=== PATIENT | male | born 1975 | race Caucasian/White ===

== ENCOUNTER 2019-12-19 12:53 | Emergency (ER) | payer BC ==
--- NOTE | 2019-12-19 13:08 | EDM.PDOC ---
ED HPI GENERAL MEDICAL PROBLEM - General Chief Complaint: Diabetic Complaint Stated Complaint: DIABETIC Time Seen by Provider: 12/19/19 12:54 Source of Information: Reports: Patient History Limitations: Reports: No Limitations - History of Present Illness INITIAL COMMENTS - FREE TEXT/NARRATIVE: 44-year-old male past medical history [id number] diabetes presents for multiple complaints. Patient notes that he was on quarantine for the last 2 weeks because his was diagnosed with COVID-19. He has noted over the last several days generalized fatigue, weight gain of 8 to 10 pounds, fluctuating blood sugars from mid 100s to mid 300s. He has noted a headache and body aches. He denies shortness of breath, but he has developed a cough today. He notes that he had stopped taking his insulin for several months and that his blood sugars have been well controlled with diet alone. He does not currently have a primary care physician but is interested in establishing care with someone. He denies fevers. headache Pain Score (Numeric/FACES): 6 - Related Data Allergies Allergy/AdvReac Type Severity Reaction Status Date / Time prednisone Allergy vascular Verified 12/19/19 13:06 necrosis steroids Allergy Other Uncoded 12/19/19 13:06 Home Meds: Home Meds . 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 ED EXAM GENERAL NO PERIP PULSE - Physical Exam Exam: See Below General Appearance: Alert, WD/WN, No Apparent Distress Throat/Mouth: Normal Voice, No Airway Compromise Head: Atraumatic, Normocephalic Neck: Normal Inspection Respiratory/Chest: No Respiratory Distress, No Accessory Muscle Use, Wheezing Cardiovascular: Normal Peripheral Pulses, Regular Rate, Rhythm GI/Abdominal: Soft, Non-Tender Extremities: Normal Inspection Neurological: Alert Psychiatric: Normal Affect, Normal Mood Skin Exam: Warm, Dry, Intact, Normal Color Course - Vital Signs Last Recorded V/S: Last Vital Signs Temp 96.8 F L 12/19/19 13:01 Pulse 110 H 12/19/19 13:01 Resp 18 12/19/19 13:01 BP 154/100 H 12/19/19 13:01 Pulse Ox 95 12/19/19 13:01 - Orders/Labs/Meds Orders: Active Orders 24 hr Category Date Time Status EKG Documentation Completion [RC] STAT Care 12/19/19 13:20 Active CORONAVIRUS COVID-19 PCR PHL Stat Lab 12/19/19 14:00 Received Sodium Chloride 0.9% [Saline Flush] Med 12/19/19 13:20 Active 10 ml FLUSH ASDIRECTED PRN Sodium Chloride 0.9% [Saline Flush] Med 12/19/19 13:20 Active 2.5 ml FLUSH ASDIRECTED PRN Saline Lock Insert [OM.PC] Stat Oth 12/19/19 13:20 Ordered Medication Orders Sodium Chloride (Saline Flush) 10 ml FLUSH ASDIRECTED PRN PRN Reason: Keep Vein Open Last Admin: 12/19/19 13:59 Dose: 10 ml Documented by: JULIANN Sodium Chloride (Saline Flush) 2.5 ml FLUSH ASDIRECTED PRN PRN Reason: Keep Vein Open Last Admin: 12/19/19 13:59 Dose: 2.5 ml Documented by: JULIANN Labs: Laboratory Tests 12/19/19 12/19/19 12/19/19 Range/Units 13:36 13:46 13:46 WBC 11.83 H (4.0-11.0) K/uL RBC 5.02 (4.50-5.90) M/uL Hgb 15.1 (13.0-17.0) g/dL Hct 45.8 (38.0-50.0) % MCV 91.2 (80.0-98.0) fL MCH 30.1 (27.0-32.0) pg MCHC 33.0 (31.0-37.0) g/dL RDW Std Deviation 49.1 (28.0-62.0) fl RDW Coeff of Bryson 15 (11.0-15.0) % Plt Count 317 (150-400) K/uL MPV 10.30 (7.40-12.00) fL Neut % (Auto) 54.9 (48.0-80.0) % Lymph % (Auto) 35.8 (16.0-40.0) % Wilkes % (Auto) 7.6 (0.0-15.0) % Eos % (Auto) 1.4 (0.0-7.0) % Baso % (Auto) 0.3 (0.0-1.5) % Neut # (Auto) 6.5 H (1.4-5.7) K/uL Lymph # (Auto) 4.2 H (0.6-2.4) K/uL Wilkes # (Auto) 0.9 H (0.0-0.8) K/uL Eos # (Auto) 0.2 (0.0-0.7) K/uL Baso # (Auto) 0.0 (0.0-0.1) K/uL Nucleated RBC % 0.0 /100WBC Nucleated RBCs # 0 K/uL Lactate 1.9 (0.20-2.00) mmol/L Sodium (136-148) mmol/L Potassium (3.5-5.1) mmol/L Chloride (98-107) mmol/L Carbon Dioxide (21.0-32.0) mmol/L BUN (7.0-18.0) mg/dL Creatinine (0.8-1.3) mg/dL Est Cr Clr Drug Dosing mL/min Estimated GFR (MDRD) ml/min Glucose (74-106) mg/dL POC Glucose (60-110) mg/dL Hemoglobin A1c (4.5-6.2) % Calcium (8.5-10.1) mg/dL Magnesium (1.8-2.4) mg/dL Total Bilirubin (0.2-1.0) mg/dL AST (15-37) IU/L ALT (14-63) IU/L Alkaline Phosphatase (46-116) U/L Troponin I (0.000-0.056) ng/mL C-Reactive Protein (0.00-0.90) mg/dL Total Protein (6.4-8.2) g/dL Albumin (3.4-5.0) g/dL Globulin (2.6-4.0) g/dL Albumin/Globulin Ratio (0.9-1.6) Urine Color YELLOW Urine Appearance CLEAR Urine pH 5.5 (5.0-8.0) Ur Specific [place] 1.025 (1.001-1.035) Urine Protein NEGATIVE (NEGATIVE) mg/dL Urine Glucose (UA) NEGATIVE (NEGATIVE) mg/dL Urine Ketones NEGATIVE (NEGATIVE) mg/dL Urine Occult Blood NEGATIVE (NEGATIVE) Urine Nitrite NEGATIVE (NEGATIVE) Urine Bilirubin NEGATIVE (NEGATIVE) Urine Urobilinogen 0.2 (<2.0) EU/dL Ur Leukocyte Esterase NEGATIVE (NEGATIVE) SARS CoV-2 RNA Rapid DANICA (NEGATIVE) 12/19/19 12/19/19 12/19/19 Range/Units 13:46 13:46 14:00 WBC (4.0-11.0) K/uL RBC (4.50-5.90) M/uL Hgb (13.0-17.0) g/dL Hct (38.0-50.0) % MCV (80.0-98.0) fL MCH (27.0-32.0) pg MCHC (31.0-37.0) g/dL RDW Std Deviation (28.0-62.0) fl RDW Coeff of Bryson (11.0-15.0) % Plt Count (150-400) K/uL MPV (7.40-12.00) fL Neut % (Auto) (48.0-80.0) % Lymph % (Auto) (16.0-40.0) % Wilkes % (Auto) (0.0-15.0) % Eos % (Auto) (0.0-7.0) % Baso % (Auto) (0.0-1.5) % Neut # (Auto) (1.4-5.7) K/uL Lymph # (Auto) (0.6-2.4) K/uL Wilkes # (Auto) (0.0-0.8) K/uL Eos # (Auto) (0.0-0.7) K/uL Baso # (Auto) (0.0-0.1) K/uL Nucleated RBC % /100WBC Nucleated RBCs # K/uL Lactate (0.20-2.00) mmol/L Sodium 140 (136-148) mmol/L Potassium 3.4 L (3.5-5.1) mmol/L Chloride 104 (98-107) mmol/L Carbon Dioxide 24.6 (21.0-32.0) mmol/L BUN 11 (7.0-18.0) mg/dL Creatinine 1.3 (0.8-1.3) mg/dL Est Cr Clr Drug Dosing 77.93 mL/min Estimated GFR (MDRD) 59.4 ml/min Glucose 145 H (74-106) mg/dL POC Glucose (60-110) mg/dL Hemoglobin A1c 6.5 H (4.5-6.2) % Calcium 8.5 (8.5-10.1) mg/dL Magnesium 2.0 (1.8-2.4) mg/dL Total Bilirubin 0.3 (0.2-1.0) mg/dL AST 17 (15-37) IU/L ALT 35 (14-63) IU/L Alkaline Phosphatase 126 H (46-116) U/L Troponin I < 0.050 (0.000-0.056) ng/mL C-Reactive Protein 0.70 (0.00-0.90) mg/dL Total Protein 6.6 (6.4-8.2) g/dL Albumin 3.4 (3.4-5.0) g/dL Globulin 3.2 (2.6-4.0) g/dL Albumin/Globulin Ratio 1.1 (0.9-1.6) Urine Color Urine Appearance Urine pH (5.0-8.0) Ur Specific [place] (1.001-1.035) Urine Protein (NEGATIVE) mg/dL Urine Glucose (UA) (NEGATIVE) mg/dL Urine Ketones (NEGATIVE) mg/dL Urine Occult Blood (NEGATIVE) Urine Nitrite (NEGATIVE) Urine Bilirubin (NEGATIVE) Urine Urobilinogen (<2.0) EU/dL Ur Leukocyte Esterase (NEGATIVE) SARS CoV-2 RNA Rapid DANICA NEGATIVE (NEGATIVE) 12/19/19 Range/Units 14:11 WBC (4.0-11.0) K/uL RBC (4.50-5.90) M/uL Hgb (13.0-17.0) g/dL Hct (38.0-50.0) % MCV (80.0-98.0) fL MCH (27.0-32.0) pg MCHC (31.0-37.0) g/dL RDW Std Deviation (28.0-62.0) fl RDW Coeff of Bryson (11.0-15.0) % Plt Count (150-400) K/uL MPV (7.40-12.00) fL Neut % (Auto) (48.0-80.0) % Lymph % (Auto) (16.0-40.0) % Wilkes % (Auto) (0.0-15.0) % Eos % (Auto) (0.0-7.0) % Baso % (Auto) (0.0-1.5) % Neut # (Auto) (1.4-5.7) K/uL Lymph # (Auto) (0.6-2.4) K/uL Wilkes # (Auto) (0.0-0.8) K/uL Eos # (Auto) (0.0-0.7) K/uL Baso # (Auto) (0.0-0.1) K/uL Nucleated RBC % /100WBC Nucleated RBCs # K/uL Lactate (0.20-2.00) mmol/L Sodium (136-148) mmol/L Potassium (3.5-5.1) mmol/L Chloride (98-107) mmol/L Carbon Dioxide (21.0-32.0) mmol/L BUN (7.0-18.0) mg/dL Creatinine (0.8-1.3) mg/dL Est Cr Clr Drug Dosing mL/min Estimated GFR (MDRD) ml/min Glucose (74-106) mg/dL POC Glucose 140 H (60-110) mg/dL Hemoglobin A1c (4.5-6.2) % Calcium (8.5-10.1) mg/dL Magnesium (1.8-2.4) mg/dL Total Bilirubin (0.2-1.0) mg/dL AST (15-37) IU/L ALT (14-63) IU/L Alkaline Phosphatase (46-116) U/L Troponin I (0.000-0.056) ng/mL C-Reactive Protein (0.00-0.90) mg/dL Total Protein (6.4-8.2) g/dL Albumin (3.4-5.0) g/dL Globulin (2.6-4.0) g/dL Albumin/Globulin Ratio (0.9-1.6) Urine Color Urine Appearance Urine pH (5.0-8.0) Ur Specific [place] (1.001-1.035) Urine Protein (NEGATIVE) mg/dL Urine Glucose (UA) (NEGATIVE) mg/dL Urine Ketones (NEGATIVE) mg/dL Urine Occult Blood (NEGATIVE) Urine Nitrite (NEGATIVE) Urine Bilirubin (NEGATIVE) Urine Urobilinogen (<2.0) EU/dL Ur Leukocyte Esterase (NEGATIVE) SARS CoV-2 RNA Rapid DANICA (NEGATIVE) Meds: Medications Generic Name Dose Route Start Last Admin Trade Name Freq PRN Reason Stop Dose Admin Sodium Chloride 10 ml 12/19/19 13:20 12/19/19 13:59 Saline Flush FLUSH 10 ml ASDIRECTED PRN Administration Keep Vein Open Sodium Chloride 2.5 ml 12/19/19 13:20 12/19/19 13:59 Saline Flush FLUSH 2.5 ml ASDIRECTED PRN Administration Keep Vein Open Discontinued Medications Generic Name Dose Route Start Last Admin Trade Name Freq PRN Reason Stop Dose Admin Sodium Chloride 1,000 mls @ 999 mls/hr 12/19/19 13:20 12/19/19 13:51 Normal Saline IV 12/19/19 14:20 999 mls/hr .Bolus ONE Administration Ketorolac Tromethamine 15 mg 12/19/19 13:21 12/19/19 13:51 Toradol IVPUSH 12/19/19 13:22 15 mg ONETIME ONE Administration - Re-Assessments/Exams Free Text/Narrative Re-Assessment/Exam: 12/19/19 13:24 Patient symptoms very nonspecific. Will get broad lab work-up including EKG, chest x-ray, COVID-19 swab, blood labs, hemoglobin A1c, UA. And accordingly. Patient is with normal vital signs and likely stable to go home and follow-up with her primary care physician. Will give patient follow-up information. 12/19/19 14:52 Labs grossly unremarkable, will discharge patient with referral to primary care clinic. Return precautions were discussed and patient is encouraged to return back to the emergency department for any emergent complications. Departure - Departure Time of Disposition: 14:52 Disposition: Home, Self-Care 01 Condition: Good Clinical Impression: Diabetes Qualifiers: Diabetes mellitus type: type 2 Diabetes mellitus watermelon inspector insulin use: without watermelon inspector use Diabetes mellitus complication status: without complication Qualified Code(s): E11.9 - Type 2 diabetes mellitus without complications - Discharge Information Instructions: Type 2 Diabetes Mellitus, Self Care, Adult, [id number] Referrals: PCP,None [Primary Care Provider] - Forms: ED Department Discharge Additional Instructions: The following information is given to patients seen in the emergency department who are being discharged to home. This information is to outline your options for follow-up care. We provide all patients seen in our emergency department with a follow-up referral. The need for follow-up, as well as the timing and circumstances, are variable depending upon the specifics of your emergency department visit. If you don't have a primary care physician on staff, we will provide you with a referral. We always advise you to contact your personal physician following an emergency department visit to inform them of the circumstance of the visit and for follow-up with them and/or the need for any referrals to a consulting specialist. The emergency department will also refer you to a specialist when appropriate. This referral assures that you have the opportunity for follow-up care with a specialist. All of these measure are taken in an effort to provide you with optimal care, which includes your follow-up. Under all circumstances we always encourage you to contact your private physician who remains a resource for coordinating your care. When calling for follow-up care, please make the office aware that this follow-up is from your recent emergency room visit. If for any reason you are refused follow-up, please contact the [facility] Emergency Department at and asked to speak to the emergency department charge nurse. Please follow up with your primary care physician. If you do not have a primary care physician, see below: [facility] [address] [place] [id number] [address] Sepsis Event Note (ED) - Evaluation Sepsis Screening Result: No Definite Risk - Focused Exam Vital Signs: Vital Signs Temp Pulse Resp BP Pulse Ox 12/19/19 13:01 96.8 F L 110 H 18 154/100 H 95 - My Orders Last 24 Hours: My Active Orders 12/19/19 13:20 EKG Documentation Completion [RC] STAT Sodium Chloride 0.9% [Saline Flush] 10 ml FLUSH ASDIRECTED PRN Sodium Chloride 0.9% [Saline Flush] 2.5 ml FLUSH ASDIRECTED PRN Saline Lock Insert [OM.PC] Stat 12/19/19 14:00 CORONAVIRUS COVID-19 PCR PHL Stat - Assessment/Plan Last 24 Hours: My Active Orders 12/19/19 13:20 EKG Documentation Completion [RC] STAT Sodium Chloride 0.9% [Saline Flush] 10 ml FLUSH ASDIRECTED PRN Sodium Chloride 0.9% [Saline Flush] 2.5 ml FLUSH ASDIRECTED PRN Saline Lock Insert [OM.PC] Stat 12/19/19 14:00 CORONAVIRUS COVID-19 PCR PHL Stat
[2019-12-19] MEDS ORDERED: Sodium Chloride 0.9% 1,000 ML IV ONE (13:20)
[2019-12-19] MEDS ORDERED: Sodium Chloride 0.9% 10 ML Syringe FLUSH PRN (13:20)
[2019-12-19] MEDS ORDERED: Sodium Chloride 0.9% 2.5 ML Syringe FLUSH PRN (13:20)
[2019-12-19] MEDS ORDERED: Ketorolac 15 MG/ML SDV IVPUSH ONE (13:21)
--- NOTE | 2019-12-19 14:01 | CR ---
Indication: Cough. History of diabetes. Technique: AP portable view of the chest. Comparison: None Findings: The heart is normal in size. The lungs are clear. No infiltrate, pleural effusion, or pneumothorax is identified. Impression: No acute cardiopulmonary process. Dictated by Lucero Claudio MD @ Dec 19 2019 2:00PM Signed by Dr. Lucero Claudio @ Dec 19 2019 2:00PM
[2019-12-19 14:06] LABS: HEMOGLOBIN A1C 6.5 % (4.5-6.2)
[2019-12-19 14:17] LABS: BLOOD UREA NITROGEN,BUN 11 mg/dL (7.0-18.0); CARBON DIOXIDE,CO2 24.6 mmol/L (21.0-32.0); CHLORIDE,CL 104 mmol/L (98-107); GLUCOSE RANDOM 145 mg/dL (74-106); POTASSIUM,K 3.4 mmol/L (3.5-5.1); SODIUM,NA 140 mmol/L (136-148)
[2019-12-19 19:46] VITALS: BP 132/68; PULSE 81
== END 2019-12-19 15:07 | disposition home or self-care (01) ==
LOC: MW.ED 12:53
DX: E11.9 Type 2 diabetes mellitus without complications (principal); Z20.828 Contact with and (suspected) exposure to other viral communicable diseases; Z88.8 Allergy status to other drugs, medicaments and biological substances
CPT/HCPCS: 71045; 80053; 81003; 82962; 83036; 83605; 83735; 84484; 85025; 86140; 87635; 93005; 96374; 99285; J1885; J7030; 93010; 99283; U0002

== ENCOUNTER 2020-06-19 07:22 | Emergency (ER) | payer BC ==
[2020-06-19] MEDS ORDERED: Lactated Ringers 1,000 ML IV ONE ×2 (07:47)
[2020-06-19 08:23] LABS: HEMOGLOBIN A1C 8.8 %
[2020-06-19 08:25] LABS: BLOOD UREA NITROGEN,BUN 12 mg/dL (7.0-18.0); CARBON DIOXIDE,CO2 22.3 mmol/L (21.0-32.0); CHLORIDE,CL 100 mmol/L (98-107); POTASSIUM,K 4.1 mmol/L (3.5-5.1); SODIUM,NA 135 mmol/L (136-148)
[2020-06-19 08:29] LABS: GLUCOSE RANDOM 523 mg/dL (74-106)
[2020-06-19 08:42] VITALS: BP 153/89; PULSE 87
[2020-06-19] MEDS ORDERED: Insulin Regular, Human 100 Units/ML 10 ML Vial SUBCUT ONE (09:49)
[2020-06-19] MEDS ORDERED: 50% Dextrose in Water 50 ML Syringe IV PRN (09:49)
[2020-06-19] MEDS ORDERED: Glucagon,Human Recombinant 1 MG Vial IM PRN (09:49)
--- NOTE | 2020-06-19 10:03 | EDM.PDOC ---
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 He states that he cannot seem to control his sugars and they have been high. He states that he was on Metformin and insulin but is not currently taking either. He states that he has been trying to cut out carbs but it seems and possible and he may have to start a keto diet. He states that he is experiencing polyuria and polydipsia. He denies any chest pain, shortness of breath, abdominal pain, nausea or vomiting. He denies any rash and states that he does check his feet frequently. He denies any history of peripheral neuropathy. Denies any history of gastroparesis. He denies any other symptoms. REVIEW OF SYSTEMS: Constitutional: Denies fever, chills. Eyes: Denies eye pain Ears, Nose, Mouth, & Throat: Denies earache Cardiovascular: Denies chest pain Respiratory: Denies shortness of breath Gastrointestinal: Denies Nausea, vomiting, diarrhea, hematochezia. Genitourinary: Positive for polyuria and polydipsia. Denies hematuria Skin:Denies a rash MSK: Denies joint pain Neurological: Denies blurred vision, numbness, tingling, weakness Psychiatric: Denies depression PAST MEDICAL HISTORY: As per history of present illness and as reviewed below otherwise noncontributory. SURGICAL HISTORY: As per history of present illness and as reviewed below otherwise noncontributory. SOCIAL HISTORY: As per history of present illness and as reviewed below otherwise noncontributory. FAMILY HISTORY: As per history of present illness and as reviewed below otherwise noncontributory. EXAMINATION OF ORGAN SYSTEMS/BODY AREAS: Constitutional: Blood pressure is 145/107, heart rate 104, respiratory rate 18 with an oxygen saturation 96% on room air. Temperature 36.0 temporally General: Obese gentleman who does not appear to be in acute distress Psychiatric: Cooperative but appears anxious Eyes: No scleral icterus or conjunctival erythema ENMT: Moist mucous membranes. No pharyngeal erythema Cardiovascular: Tachycardic but regular no gallops, murmurs, or rubs. Bilateral upper extremity pulses symmetric and intact. No peripheral edema. No JVD. Respiratory: Lungs clear to auscultation bilaterally. No wheezes, rales, or rhonchi. Gastrointestinal: Soft, non-tender, non-distended. Normoactive bowel sounds Genitourinary: No suprapubic tenderness Musculoskeletal: Normal range of motion. Skin: No lesions or abrasions. Neurological: Alert, GCS 15 MEDICAL DECISION MAKING AND COURSE IN THE ED WITH INTERPRETATION/REVIEW OF DIAGNOSTIC STUDIES: This is a 44-year-old and with a past medical history of diabetes mellitus who comes to the emergency department with hyperglycemia w ithout any other symptoms except for polyuria and polydipsia. The patient is mildly tachycardic. [id number] glucose was obtained which was found to be elevated at 500. At this time differential does include DKA versus HHS. We will provide the patient with 2 L of lactated Ringer's bolus. Will obtain CBC, CMP, troponin, EKG, serum ketones, urinalysis, VBG. Time: 744 Twelve-lead EKG interpreted by myself. Normal sinus rhythm at a rate of 97 beats per minute. Normal axis. TN interval is 140 ms. QRS duration is [address] segments are normal without elevations or depressions. No T wave inversions no Q waves present. Hypertrophy not noted. No changes demonstrated from prior EKG dated 12/19/2019. Interpretation: The sinus rhythm Laboratory: CBC reveals a mild leukocytosis 11.42 with normal indices and no left shift otherwise unremarkable. CMP reveals hyponatremia at 135, elevated creatinine at 1.5, hyperglycemia at 523, mild elevation in ALT at 65 and alkaline phosphatase at 288. Troponin is negative. A1c is 8.8. Serum ketones are negative. Urinalysis was a clean catch and was negative for leukocyte esterase, negative for nitrites, and negative for blood. Interpretation: Negative. VB.37/42/48/24 After 2 L the patient's glucose did decrease down to 323. We will observe the patient to reevaluate his hyperglycemia. I did discuss the results with the patient. We were able to contact our clinic to schedule an appointment today for insulin consideration and diabetic education. Do not believe the patient requires admission at this time. Patient's glucose remained elevated at 334. The patient stated that he had a mild headache at this time and was feeling hungry. I did offer the patient subcutaneous insulin and continued observation however the patient stated that he could take Tylenol at home and that he could follow-up this afternoon. I did discuss his elevated creatinine and his elevated A1c. I did encourage the patient to follow-up this afternoon so that his diabetes can be managed appropriately and so that he can get diabetic education. He did express understanding. At this time the patient was stable for discharge. He is to return for any new or worsening symptoms. DISPOSITION: The patient was discharged home in stable condition. The patient will follow up with primary care clinic today CONDITION: Fair PROCEDURES: None FINAL IMPRESSION(S)/DIAGNOSES: 1. Acute hyperglycemia, poorly controlled diabetes 2. Kidney disease likely secondary to poorly controlled diabetes mellitus Brian Dao M.D. - Related Data Allergies Allergy/AdvReac Type Severity Reaction Status Date / Time oxytocin Allergy Other Verified 06/19/20 07:39 prednisone Allergy vascular Verified 06/19/20 07:38 necrosis steroids Allergy Other Uncoded 06/19/20 07:38 Home Meds: Home Meds . 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) Neurological History: Reports: None Psychiatric History: Reports: None Endocrine/Metabolic History: Reports: Diabetes, Type II Other Endocrine/Metabolic History: has been controling diabetes with diet Hematologic History: Reports: None Immunologic History: Reports: None Oncologic (Cancer) History: Reports: None Dermatologic History: Reports: None - Infectious Disease History Infectious Disease History: Reports: None - Past Surgical History HEENT Surgical History: Reports: None Cardiovascular Surgical History: Reports: None Respiratory Surgical History: Reports: None GI Surgical History: Reports: Appendectomy Male Surgical History: Reports: None Endocrine Surgical History: Reports: None Neurological Surgical History: Reports: None Musculoskeletal Surgical History: Reports: Arthroscopic Knee, Hip Replacement Other Musculoskeletal Surgeries/Procedures:: hx hannah hip replacement, Oncologic Surgical History: Reports: None Dermatological Surgical History: Reports: None Social & Family History - Family History Family Medical History: No Pertinent Family History - Tobacco Use Tobacco Use Status *Q: Never Tobacco User - Caffeine Use Caffeine Use: Reports: None - Recreational Drug Use Recreational Drug Use: No ED ROS GENERAL - Review of Systems Review Of Systems: See Below ED EXAM GENERAL NO PERIP PULSE - Physical Exam Exam: See Below Course - Vital Signs Last Recorded V/S: Last Vital Signs Temp 36.0 C L 06/19/20 07:36 Pulse 87 06/19/20 08:42 Resp 16 06/19/20 08:42 BP 153/89 H 06/19/20 08:42 Pulse Ox 97 06/19/20 08:42 - Orders/Labs/Meds Labs: Laboratory Tests 06/19/20 06/19/20 06/19/20 Range/Units 07:31 07:33 07:44 WBC 11.42 H (4.0-11.0) K/uL RBC 5.37 (4.50-5.90) M/uL Hgb 16.7 (13.0-17.0) g/dL Hct 49.3 (38.0-50.0) % MCV 91.8 (80.0-98.0) fL MCH 31.1 (27.0-32.0) pg MCHC 33.9 (31.0-37.0) g/dL RDW Std Deviation 44.8 (28.0-62.0) fl RDW Coeff of Bryson 14 (11.0-15.0) % Plt Count 334 (150-400) K/uL MPV 11.20 (7.40-12.00) fL Neut % (Auto) 62.5 (48.0-80.0) % Lymph % (Auto) 28.8 (16.0-40.0) % Richardson % (Auto) 7.6 (0.0-15.0) % Eos % (Auto) 0.8 (0.0-7.0) % Baso % (Auto) 0.3 (0.0-1.5) % Neut # (Auto) 7.1 H (1.4-5.7) K/uL Lymph # (Auto) 3.3 H (0.6-2.4) K/uL Richardson # (Auto) 0.9 H (0.0-0.8) K/uL Eos # (Auto) 0.1 (0.0-0.7) K/uL Baso # (Auto) 0.0 (0.0-0.1) K/uL Nucleated RBC % 0.0 /100WBC Nucleated RBCs # 0 K/uL VBG pH (7.31-7.41) VBG pCO2 (35-45) mmHG VBG pO2 (30-40) mmHG VBG HCO3 (22-30) mEq/L VBG Total CO2 (41-51) mmol/L VBG Base Excess (-3.0-3.0) Sodium (136-148) mmol/L Potassium (3.5-5.1) mmol/L Chloride (98-107) mmol/L Carbon Dioxide (21.0-32.0) mmol/L BUN (7.0-18.0) mg/dL Creatinine (0.8-1.3) mg/dL Est Cr Clr Drug Dosing mL/min Estimated GFR (MDRD) ml/min Glucose (74-106) mg/dL POC Glucose 500 H* (70-99) mg/dL Hemoglobin A1c (4.5 - 6.2) % Calcium (8.5-10.1) mg/dL Total Bilirubin (0.2-1.0) mg/dL AST (15-37) IU/L ALT (14-63) IU/L Alkaline Phosphatase (46-116) U/L Troponin I (0.000-0.056) ng/mL Total Protein (6.4-8.2) g/dL Albumin (3.4-5.0) g/dL Globulin (2.6-4.0) g/dL Albumin/Globulin Ratio (0.9-1.6) Urine Color YELLOW Urine Appearance CLEAR Urine pH 5.5 (5.0-8.0) Ur Specific [place] 1.010 (1.001-1.035) Urine Protein NEGATIVE (NEGATIVE) mg/dL Urine Glucose (UA) >=1000 (NEGATIVE) mg/dL Urine Ketones NEGATIVE (NEGATIVE) mg/dL Urine Occult Blood NEGATIVE (NEGATIVE) Urine Nitrite NEGATIVE (NEGATIVE) Urine Bilirubin NEGATIVE (NEGATIVE) Urine Urobilinogen 0.2 (<2.0) EU/dL Ur Leukocyte Esterase NEGATIVE (NEGATIVE) Ketones (NEG) 06/19/20 06/19/20 06/19/20 Range/Units 07:44 07:44 07:44 WBC (4.0-11.0) K/uL RBC (4.50-5.90) M/uL Hgb (13.0-17.0) g/dL Hct (38.0-50.0) % MCV (80.0-98.0) fL MCH (27.0-32.0) pg MCHC (31.0-37.0) g/dL RDW Std Deviation (28.0-62.0) fl RDW Coeff of Bryson (11.0-15.0) % Plt Count (150-400) K/uL MPV (7.40-12.00) fL Neut % (Auto) (48.0-80.0) % Lymph % (Auto) (16.0-40.0) % Richardson % (Auto) (0.0-15.0) % Eos % (Auto) (0.0-7.0) % Baso % (Auto) (0.0-1.5) % Neut # (Auto) (1.4-5.7) K/uL Lymph # (Auto) (0.6-2.4) K/uL Richardson # (Auto) (0.0-0.8) K/uL Eos # (Auto) (0.0-0.7) K/uL Baso # (Auto) (0.0-0.1) K/uL Nucleated RBC % /100WBC Nucleated RBCs # K/uL VBG pH 7.37 (7.31-7.41) VBG pCO2 42 (35-45) mmHG VBG pO2 48 H (30-40) mmHG VBG HCO3 24 (22-30) mEq/L VBG Total CO2 21 L (41-51) mmol/L VBG Base Excess -1.5 (-3.0-3.0) Sodium 135 L (136-148) mmol/L Potassium 4.1 (3.5-5.1) mmol/L Chloride 100 (98-107) mmol/L Carbon Dioxide 22.3 (21.0-32.0) mmol/L BUN 12 (7.0-18.0) mg/dL Creatinine 1.5 H (0.8-1.3) mg/dL Est Cr Clr Drug Dosing 67.54 mL/min Estimated GFR (MDRD) 50.4 ml/min Glucose 523 H* (74-106) mg/dL POC Glucose (70-99) mg/dL Hemoglobin A1c (4.5 - 6.2) % Calcium 8.7 (8.5-10.1) mg/dL Total Bilirubin 0.2 (0.2-1.0) mg/dL AST 19 (15-37) IU/L ALT 65 H (14-63) IU/L Alkaline Phosphatase 288 H (46-116) U/L Troponin I < 0.050 (0.000-0.056) ng/mL Total Protein 7.6 (6.4-8.2) g/dL Albumin 3.6 (3.4-5.0) g/dL Globulin 4.0 (2.6-4.0) g/dL Albumin/Globulin Ratio 0.9 (0.9-1.6) Urine Color Urine Appearance Urine pH (5.0-8.0) Ur Specific [place] (1.001-1.035) Urine Protein (NEGATIVE) mg/dL Urine Glucose (UA) (NEGATIVE) mg/dL Urine Ketones (NEGATIVE) mg/dL Urine Occult Blood (NEGATIVE) Urine Nitrite (NEGATIVE) Urine Bilirubin (NEGATIVE) Urine Urobilinogen (<2.0) EU/dL Ur Leukocyte Esterase (NEGATIVE) Ketones NEGATIVE (NEG) 06/19/20 06/19/20 06/19/20 Range/Units 07:44 09:03 09:40 WBC (4.0-11.0) K/uL RBC (4.50-5.90) M/uL Hgb (13.0-17.0) g/dL Hct (38.0-50.0) % MCV (80.0-98.0) fL MCH (27.0-32.0) pg MCHC (31.0-37.0) g/dL RDW Std Deviation (28.0-62.0) fl RDW Coeff of Bryson (11.0-15.0) % Plt Count (150-400) K/uL MPV (7.40-12.00) fL Neut % (Auto) (48.0-80.0) % Lymph % (Auto) (16.0-40.0) % Richardson % (Auto) (0.0-15.0) % Eos % (Auto) (0.0-7.0) % Baso % (Auto) (0.0-1.5) % Neut # (Auto) (1.4-5.7) K/uL Lymph # (Auto) (0.6-2.4) K/uL Richardson # (Auto) (0.0-0.8) K/uL Eos # (Auto) (0.0-0.7) K/uL Baso # (Auto) (0.0-0.1) K/uL Nucleated RBC % /100WBC Nucleated RBCs # K/uL VBG pH (7.31-7.41) VBG pCO2 (35-45) mmHG VBG pO2 (30-40) mmHG VBG HCO3 (22-30) mEq/L VBG Total CO2 (41-51) mmol/L VBG Base Excess (-3.0-3.0) Sodium (136-148) mmol/L Potassium (3.5-5.1) mmol/L Chloride (98-107) mmol/L Carbon Dioxide (21.0-32.0) mmol/L BUN (7.0-18.0) mg/dL Creatinine (0.8-1.3) mg/dL Est Cr Clr Drug Dosing mL/min Estimated GFR (MDRD) ml/min Glucose (74-106) mg/dL POC Glucose 323 H 334 H (70-99) mg/dL Hemoglobin A1c 8.8 H (4.5 - 6.2) % Calcium (8.5-10.1) mg/dL Total Bilirubin (0.2-1.0) mg/dL AST (15-37) IU/L ALT (14-63) IU/L Alkaline Phosphatase (46-116) U/L Troponin I (0.000-0.056) ng/mL Total Protein (6.4-8.2) g/dL Albumin (3.4-5.0) g/dL Globulin (2.6-4.0) g/dL Albumin/Globulin Ratio (0.9-1.6) Urine Color Urine Appearance Urine pH (5.0-8.0) Ur Specific [place] (1.001-1.035) Urine Protein (NEGATIVE) mg/dL Urine Glucose (UA) (NEGATIVE) mg/dL Urine Ketones (NEGATIVE) mg/dL Urine Occult Blood (NEGATIVE) Urine Nitrite (NEGATIVE) Urine Bilirubin (NEGATIVE) Urine Urobilinogen (<2.0) EU/dL Ur Leukocyte Esterase (NEGATIVE) Ketones (NEG) Meds: Medications Discontinued Medications Generic Name Dose Route Start Last Admin Trade Name Freq PRN Reason Stop Dose Admin Dextrose/Water 50 ml 06/19/20 09:49 50% Dextrose In Water 50 Ml Syringe IV ASDIRECTED PRN Hypoglycemia Glucagon 1 mg 06/19/20 09:49 Glucagon,Human Recombinant 1 Mg Vial IM ASDIRECTED PRN Hypoglycemia Lactated Ringer's 1,000 mls @ 999 mls/hr 06/19/20 07:47 06/19/20 07:48 Ringers, Lactated IV 06/19/20 08:47 999 mls/hr .BOLUS ONE Administration Lactated Ringer's 1,000 mls @ 999 mls/hr 06/19/20 07:47 06/19/20 07:48 Ringers, Lactated IV 06/19/20 08:47 999 mls/hr .BOLUS ONE Administration Insulin Human Regular 3 unit 06/19/20 09:49 Insulin Regular, Human 100 Units/Ml 10 Ml Vial SUBCUT 06/19/20 09:50 ONETIME ONE Protocol Departure - Departure Time of Disposition: 10:02 Disposition: Home, Self-Care 01 Condition: Fair Clinical Impression: Hyperglycemia - Discharge Information *PRESCRIPTION DRUG MONITORING PROGRAM REVIEWED*: No *COPY OF PRESCRIPTION DRUG MONITORING REPORT IN PATIENT KARELY: No Instructions: Hyperglycemia, Type 2 Diabetes Mellitus, Diagnosis, Adult, [id number] Referrals: Priscila Rdz NP [Nurse Practitioner] - 06/19/20 3:45 pm PCP,None [Primary Care Provider] - Forms: ED Department Discharge Additional Instructions: You were evaluated today on an emergent basis. At this time you do have hyperglycemia which is increased glucose levels in your blood. This is due to uncontrolled diabetes mellitus. We did provide you with fluids and your glucose did come down. However you will need insulin regimen. At this time we did make an appointment for you today with primary care physician to initiate insulin and further follow-up of your diabetes. If you have any new or worsening symptoms please return to the emergency department. [facility] [address] [place] [address] [facility] [address] [place] [id number] The patient is informed of any results of their evaluation and diagnostic workup and all questions are answered. They are given discharge instructions and return precautions. The patient is stable for discharge. The patient states they understand and agree with the plan and that they will return if their symptoms get worse or if they have any new concerns. The following information is given to patients seen in the emergency department who are being discharged to home. This information is to outline your options for follow-up care. We provide all patients seen in our emergency department with a follow-up referral. The need for follow-up, as well as the timing and circumstances, are variable d epending upon the specifics of your emergency department visit. If you don't have a primary care physician on staff, we will provide you with a referral. We always advise you to contact your personal physician following an emergency department visit to inform them of the circumstance of the visit and for follow-up with them and/or the need for any referrals to a consulting specialist. The emergency department will also refer you to a specialist when appropriate. This referral assures that you have the opportunity for follow-up care with a specialist. All of these measure are taken in an effort to provide you with optimal care, which includes your follow-up. Under all circumstances we always encourage you to contact your private physician who remains a resource for coordinating your care. When calling for follow-up care, please make the office aware that this follow-up is from your recent emergency room visit. If for any reason you are refused follow-up, please contact the [facility] Emergency Department at and asked to speak to the emergency department charge nurse. Sepsis Event Note (ED) - Evaluation Sepsis Screening Result: No Definite Risk - Focused Exam Vital Signs: Vital Signs Temp Pulse Resp BP Pulse Ox 06/19/20 08:42 87 16 153/89 H 97 06/19/20 07:36 36.0 C L 104 H 18 145/107 H 96
== END 2020-06-19 10:36 | disposition home or self-care (01) ==
LOC: MW.ED 07:22
DX: E11.65 Type 2 diabetes mellitus with hyperglycemia (principal); Z79.4 Long term (current) use of insulin
CPT/HCPCS: 36415; 80053; 81003; 82009; 82803; 82947; 83036; 84484; 85025; 93005; 99285; J7120; 93010; 99284

== ENCOUNTER 2020-06-19 17:39 | Emergency (ER) | payer BC ==
[2020-06-19 17:58] VITALS: BP 156/106; PULSE 100
[2020-06-19] MEDS ORDERED: Lactated Ringers 1,000 ML IV SCH (18:15)
--- NOTE | 2020-06-19 18:36 | EDM.PDOC ---
ED HPI GENERAL MEDICAL PROBLEM - General Chief Complaint: Diabetic Complaint Stated Complaint: DIABETES COMPLICATION Time Seen by Provider: 06/19/20 17:58 - History of Present Illness INITIAL COMMENTS - FREE TEXT/NARRATIVE: CHIEF COMPLAINT(S): "I cannot afford my insulin." HISTORY OF PRESENT ILLNESS: This is a 44-year-old man with a past medical history of poorly controlled diabetes mellitus and obesity who comes to the [facility] department with a chief complaint of "I cannot afford my insulin." The patient states that he did follow-up at the primary care office today. He states that at that time he was unable to find the paperwork and he had discussed with the primary care doctor that he was taking insulin isophane with regular 7030. He states that they sent a prescription for Lantus 12 units however he could not afford that prescription. He states that when he called back they told him that they were closed and unable to change the prescription and to go to the emergency department. The patient states that he has eaten all day and that he wants his home dose of insulin. He states that he does have an appointment for diabetic education tomorrow. He denies any headache, blurry vision, chest pain, shortness of breath, abdominal pain, nausea or vomiting. He states that he was able to find his prescription and provided it to us today. In addition he states that he would like to see an german professor and that he is going to go to [place] and set up an appointment. He denies any other symptoms REVIEW OF SYSTEMS: Constitutional: Denies fever, chills. Eyes: Denies eye pain Ears, Nose, Mouth, & Throat: Denies earache Cardiovascular: Denies chest pain Respiratory: Denies shortness of breath Gastrointestinal: Denies Nausea, vomiting, diarrhea, hematochezia. Genitourinary: Denies hematuria Skin:Denies a rash MSK: Denies joint pain Neurological: Denies blurred vision Psychiatric: Denies depression PAST MEDICAL HISTORY: As per history of present illness and as reviewed below otherwise noncontributory. SURGICAL HISTORY: As per history of present illness and as reviewed below otherwise noncontributory. SOCIAL HISTORY: As per history of present illness and as reviewed below otherwise noncontributory. FAMILY HISTORY: As per history of present illness and as reviewed below otherwise noncontributory. EXAMINATION OF ORGAN SYSTEMS/BODY AREAS: Constitutional: Blood pressure is 156/106, heart rate 100, respiratory rate 17 with an oxygen saturation 96% on room air. Temperature 36.4 General: Well-appearing man who is in no acute distress Psychiatric: Appears anxious but is cooperative. Eyes: No scleral icterus or conjunctival erythema ENMT: Moist mucous membranes. No pharyngeal erythema Cardiovascular: Tachycardic but regular no gallops, murmurs, or rubs. Bilateral upper extremity pulses symmetric and intact. No peripheral edema. No JVD. Respiratory: Lungs clear to auscultation bilaterally. No wheezes, rales, or rhonchi. Gastrointestinal: Soft, non-tender, non-distended. Normoactive bowel sounds Genitourinary: No suprapubic tenderness Musculoskeletal: Normal range of motion. Skin: No lesions or abrasions. Neurological: Alert, GCS 15 MEDICAL DECISION MAKING AND COURSE IN THE ED WITH INTERPRETATION/REVIEW OF DIAGNOSTIC STUDIES: This is a 44-year-old man with a past medical history of insulin-dependent diabetes mellitus who comes to the emergency department with inability to afford insulin prescription that was prescribed to him from primary care clinic today. At this time we did perform a DKA work-up prior to this. I do not believe repeat labs are indicated. Will obtain a [id number] glucose. I did offer fluids and further screening. We will obtain a TSH. Patient's [id number] glucose was 232. I contacted the pharmacy and spoke with them about insulin isophane and regular 7030 at his home prescription dose of 20 units twice daily. This medication was more affordable. I did discuss with patient at this time we could prescribe him a 25-day supply however he needed to follow-up with endocrinology or primary care here. I did encourage the patient to keep his diabetic education appointment tomorrow. He was amenable to this plan. At this time patient was discharged in stable condition. He did not want any fluids or repeat labs. DISPOSITION: The patient was discharged home in stable condition. The patient will follow up with art educator tomorrow and endocrinology in [place] for which she has contact information CONDITION: Fair PROCEDURES: None FINAL IMPRESSION(S)/DIAGNOSES: 1. Acute hyperglycemia Brian Dao M.D. Anterior Head Pain Score (Numeric/FACES): 4 - Related Data Allergies Allergy/AdvReac Type Severity Reaction Status Date / Time oxytocin Allergy Other Verified 05/03/21 17:53 prednisone Allergy vascular Verified 06/19/20 17:53 necrosis steroids Allergy Other Uncoded 06/19/20 17:53 Home Meds: Home Meds . 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) Neurological History: Reports: None Psychiatric History: Reports: None Endocrine/Metabolic History: Reports: Diabetes, Type II Other Endocrine/Metabolic History: has been controling diabetes with diet Hematologic History: Reports: None Immunologic History: Reports: None Oncologic (Cancer) History: Reports: None Dermatologic History: Reports: None - Infectious Disease History Infectious Disease History: Reports: None - Past Surgical History HEENT Surgical History: Reports: None Cardiovascular Surgical History: Reports: None Respiratory Surgical History: Reports: None GI Surgical History: Reports: Appendectomy Male Surgical History: Reports: None Endocrine Surgical History: Reports: None Neurological Surgical History: Reports: None Musculoskeletal Surgical History: Reports: Arthroscopic Knee, Hip Replacement Other Musculoskeletal Surgeries/Procedures:: hx hannah hip replacement, Oncologic Surgical History: Reports: None Dermatological Surgical History: Reports: None Social & Family History - Family History Family Medical History: No Pertinent Family History - Tobacco Use Tobacco Use Status *Q: Never Tobacco User - Caffeine Use Caffeine Use: Reports: None - Recreational Drug Use Recreational Drug Use: No ED ROS GENERAL - Review of Systems Review Of Systems: See Below ED EXAM GENERAL NO PERIP PULSE - Physical Exam Exam: See Below Course - Vital Signs Last Recorded V/S: Last Vital Signs Temp 36.4 C 06/19/20 17:54 Pulse 100 06/19/20 17:54 Resp 17 06/19/20 17:54 BP 156/106 H 06/19/20 17:54 Pulse Ox 96 06/19/20 17:54 - Orders/Labs/Meds Orders: Active Orders 24 hr Category Date Time Status Blood Glucose Check, Bedside [RC] ONETIME Care 06/19/20 18:13 Active Labs: Laboratory Tests 06/19/20 06/19/20 Range/Units 07:44 18:27 POC Glucose 230 H (70-99) mg/dL TSH 3rd Generation 2.62 (0.36-3.74) uIU/mL Meds: Medications Discontinued Medications Generic Name Dose Route Start Last Admin Trade Name Solitario PRN Reason Stop Dose Admin Lactated Ringer's 1,000 mls @ 999 mls/hr 06/19/20 18:15 Ringers, Lactated IV ASDIRECTED DANG Departure - Departure Time of Disposition: 18:35 Disposition: Home, Self-Care 01 Condition: Fair Clinical Impression: Hyperglycemia - Discharge Information *PRESCRIPTION DRUG MONITORING PROGRAM REVIEWED*: No *COPY OF PRESCRIPTION DRUG MONITORING REPORT IN PATIENT KARELY: No Instructions: Hyperglycemia, Type 2 Diabetes Mellitus, Diagnosis, Adult, [id number] Referrals: PCP,None [Primary Care Provider] - Forms: ED Department Discharge Additional Instructions: You were evaluated today on an emergent basis. On reevaluation your glucose had improved to 232. In discussion with the pharmacist and our new vehicle sales consultant and given that you had your prior prescription I did send a prescription to the pharmacy for insulin isophane and regular 7030 which is the Novolin equivalent. I would like you to use it as prescribed before. Please continue to monitor your sugar and watch for hypoglycemic symptoms including sweating, vomiting. If you have any of the symptoms please eat and if they are persistent please return to the emergency department. You do have a diabetic education appointment tomorrow please keep that appointment. Also please keep your endocrinology and derma tology appointment in [place]. [facility] - Primary [facility] [address] [place] [id number] [address] [address] The patient is informed of any results of their evaluation and diagnostic workup and all questions are answered. They are given discharge instructions and return precautions. The patient is stable for discharge. The patient states they understand and agree with the plan and that they will return if their symptoms get worse or if they have any new concerns. The following information is given to patients seen in the emergency department who are being discharged to home. This information is to outline your options for follow-up care. We provide all patients seen in our emergency department with a follow-up referral. The need for follow-up, as well as the timing and circumstances, are variable depending upon the specifics of your emergency department visit. If you don't have a primary care physician on staff, we will provide you with a referral. We always advise you to contact your personal physician following an emergency department visit to inform them of the circumstance of the visit and for follow-up with them and/or the need for any referrals to a consulting specialist. The emergency department will also refer you to a specialist when appropriate. This referral assures that you have the opportunity for follow-up care with a specialist. All of these measure are taken in an effort to provide you with optimal care, which includes your follow-up. Under all circumstances we always encourage you to contact your private physician who remains a resource for coordinating your care. When calling for follow-up care, please make the office aware that this follow-up is from your recent emergency room visit. If for any reason you are refused follow-up, please contact the [facility] Emergency Department at and asked to speak to the emergency department charge nurse. Sepsis Event Note (ED) - Evaluation Sepsis Screening Result: No Definite Risk - Focused Exam Vital Signs: Vital Signs Temp Pulse Resp BP Pulse Ox 06/19/20 17:54 36.4 C 100 17 156/106 H 96 - My Orders Last 24 Hours: My Active Orders 06/19/20 18:13 Blood Glucose Check, Bedside [RC] ONETIME - Assessment/Plan Last 24 Hours: My Active Orders 06/19/20 18:13 Blood Glucose Check, Bedside [RC] ONETIME
== END 2020-06-19 18:53 | disposition home or self-care (01) ==
LOC: MW.ED 17:39
DX: E11.65 Type 2 diabetes mellitus with hyperglycemia (principal); E66.9 Obesity, unspecified; Z88.5 Allergy status to narcotic agent; Z88.8 Allergy status to other drugs, medicaments and biological substances; Z68.33 Body mass index [BMI] 33.0-33.9, adult
CPT/HCPCS: 36415; 82947; 84443; 99284